=== PATIENT | male | born 1965 | race Caucasian/White ===

== ENCOUNTER 2020-06-16 19:53 | Emergency (ER) | payer OTHER ==
[2020-06-16 22:40] LABS: BASOPHIL 0.6 % (0-2); EOSINOPHIL 1.9 % (0-5); HCT 45.6 % (42.0-52.0); HGB 15.4 g/dl (13.2-18.0); LYMPHOCYTE 30.1 % (15-48); MCH 28.6 pg (25.0-31.0); MCHC 33.8 g/dL (32.0-36.0); MCV 84.6 fL (78.0-100.0); MONOCYTE 8.7 % (0-12); MPV 12.3 fL (6.0-9.5); NEUTROPHIL 58.5 % (41-80); NRBC 0; PLT 95 K/uL (150-400); RBC 5.39 M/uL (4.70-6.00); RDW 13.2 % (11.5-14.0); WBC 4.7 K/uL (4.0-10.5)
[2020-06-16 22:55] LABS: BUN/CREAT RATIO (CALC) 24.1 RATIO; C-REACTIVE PROTEIN 0.8 mg/dL (<=0.90); CREATININE 1.08 mg/dL (0.67-1.17); POTASSIUM 3.9 mmol/L (3.5-5.1)
[2020-06-17] MEDS ORDERED: VOLTAREN **OUT50 MG PO (00:17)
== END 2020-06-17 00:30 | disposition home or self-care (01) ==
LOC: FER 19:53
PROVIDERS: Emergency Medicine Emergency Medical Services
DX: M72.2 Plantar fascial fibromatosis (principal); E10.9 Type 1 diabetes mellitus without complications; I10 Essential (primary) hypertension; Z87.891 Personal history of nicotine dependence; Z98.890 Other specified postprocedural states; Z96.41 Presence of insulin pump (external) (internal); Z79.899 Other long term (current) drug therapy
CPT/HCPCS: 36415; 73700; 80048; 85025; 86140; J1885